=== PATIENT | female | born 1995 | race Caucasian/White ===

== ENCOUNTER 2019-08-16 08:48 | Inpatient (IN) | payer BC ==
[~2019-08-16] VITALS: Ht 160 cm; Wt 78.2 kg
[2019-08-17] VITALS (19 sets, daily range): BP systolic 97–131; BP diastolic 51–89; PULSE 71–110; TEMP 97–98.2
--- NOTE | 2019-08-17 06:24 | NUR ---
0624-Recieved report from NORA Ramsey. Patient on EFM. LR infusing to Left wrist IV. Consenets being reviewed and signed with NORA Ramsey. 0635-Patient off EFM. Abdoment cleaned per protocol. UMA Valdovinos in to see patient. 0700-Pepcid per anesthesia order, see EMAR. 0720-Ambulatory to OR with spouse.
[2019-08-17 06:32] LABS: BASO # 0.1 (0.0-0.2); BASO % 0.6 % (0.0-2.0); EOS # 0.2 (0.0-0.7); EOS % 1.8 % (0-4.0); GRAN # 7.1 (1.4-6.5); GRAN % 65.7 % (42.2-75.2); HEMATOCRIT 37.8 % (37.0-47.0); HEMOGLOBIN 12.6 g/dl (12.5-16.0); LYMPH # 2.3 (1.2-3.4); LYMPH % 21.3 % (20.0-51.0); MEAN CELL VOLUME 89 fl (80.0-100.0); MEAN CORPUSCULAR HEMOGLOBIN 30 pg (27.0-31.0); MEAN CORPUSCULAR HGB CONC 33 g/dl (33.0-37.0); MEAN PLATELET VOLUME 10.9 fl (7.4-10.4); MONO % 9.6 % (1.7-9.3); PLATELET COUNT 218 K/mm3 (130-400); RED BLOOD COUNT 4.26 M/mm3 (4.10-5.30); REDCELL DISTRIBUTION WIDTH-CV 13.3 % (11.5-14.5)
[2019-08-17] MEDS ORDERED: PRENATAL (06:46)
[2019-08-17] MEDS ORDERED: OSCAL 500 TAB500 MG (06:48)
--- NOTE | 2019-08-17 08:30 | NUR ---
0830-Patient to PACU via bed. Patient A&O x4. Denies pain. Left wrist IV infusing. Corona to DD, clear yellow urine. Abdomen with dressing C/D/I. Fundal massage firm, lochia WNL. Binder to abdomen. Updated on PACU plan of care. Will continue to monitor.
--- NOTE | 2019-08-17 09:00 | NUR ---
0900-Patient to PP room via bed, remains A&O x4. Fundal massage firm, lochia WNL. Dressing remains C/D/I. Patient denies pain. Updated on plan of care and oriented to room. VSS, see flow record. Assisted with infant to breast.
[2019-08-17] MEDS ORDERED: PERCOCET 325 MG1 TA2 PO (13:18)
[2019-08-17] MEDS ORDERED: IBU600 MG PO (13:18)
[2019-08-18 02:00] VITALS: BP 112/67; PULSE 77; TEMP 97.5
[2019-08-18 07:29] VITALS: BP 106/54; PULSE 69; TEMP 97.7
[2019-08-18 15:51] VITALS: BP 119/71; PULSE 79; TEMP 98
--- NOTE | 2019-08-18 18:50 | NUR ---
PLAN TO WATCH EDUCATION VIDEOS TONSARAH
[2019-08-18 21:00] VITALS: BP 123/71; PULSE 74; TEMP 98.3
[2019-08-19 07:45] VITALS: BP 113/68; PULSE 93; TEMP 98
== END 2019-08-19 11:45 | disposition home or self-care (01) | DRG 788 ==
LOC: OB 08-17 05:44
PROVIDERS: ADMIT Obstetrics & Gynecology
PROC: 10D00Z1 Extraction of Products of Conception, Low, Open Approach (ICD-10-PCS; principal; 2019-08-17)
DX: O32.1XX0 Maternal care for breech presentation, not applicable or unspecified (principal); O99.62 Diseases of the digestive system complicating childbirth; K21.9 Gastro-esophageal reflux disease without esophagitis; O99.02 Anemia complicating childbirth; D64.9 Anemia, unspecified; Z37.0 Single live birth; Z3A.39 39 weeks gestation of pregnancy
CPT/HCPCS: J0690; J1885; J2370; J2405; J2590; J7120

== ENCOUNTER → 2019-10-11 | Outpatient (CLI) | payer BC ==
[~2019-10-11] MED LIST: IBU600 MG PO; OSCAL 500 TAB500 MG; PERCOCET 325 MG1 TA2 PO; PRENATAL
--- NOTE | 2019-10-11 12:00 | NUR ---
Pt, Paloma Nobles presents for an outpatient consult with 8 week old baby boy, Baltazar Nobles to be evaluated for lip tie, fussiness at breast recently, shorter feedings, and sloppy at bottle feds. Baltazar was born on [birth year] and weighed 7#11.5 oz (3500 gms). has generally juliette uneventful until in the last week the pt feels Baltazar has an increase of the behaviours noted above. She reports Baltazar weighed 9#6oz at his one month appt. He breastfeeds q 1.5 to 2 hours in the daytime, and 4-6 hours at noc time. He is generally fed a bottle in the noc, while pt is pumping and she collects 5+ oz at that time. She occassionally pumps after feedings and collects 1-2oz. Today Baltazar weighes 11# 1.6oz (5036 gms), for a daily gain of 1.2oz since his last Dr. appt. Pt breastfeeds Baltazar, she is advised to help roll his lips out. He seems to latch well, swallows noted. He does slide down the nipple as he nurses and has moments when he pulls off but is eager to come back to breast; most likely let down causes this behaviour. After nursing bilaterally and falling asleep on the second side, Baltazar has a total weight gain of 2.5oz (72 gms), which is less than expected, but with his weight gain and frequent daytime feeding pattern, is not a large concern at this time. LC evaluates for lip tie, able to roll lip up and to tip of his nose, tongue extends well, but there is an observable frenulum in both locations. Pt advised that it does not appear to be critical and interfering with . However if she desires she can have an practitioner that treats ties evaluate him. POC: Continue current feeding plan, being aware that as Baltazar grows, his feeding patterns and characteristics will change. Discuss with spouse if further evaluation is desired. F/U: As scheduled with Dr. Dalton. Questions invited and answered.
== END ==
LOC: LAC 11:00
DX: Z39.1 Encounter for care and examination of lactating mother (principal); Z71.89 Other specified counseling